=== PATIENT | male | born 1970 | race Caucasian/White ===

== ENCOUNTER 2018-09-11 15:30 | Emergency (ER) | payer BC ==
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
== END 2018-09-11 18:02 | disposition home or self-care (01) ==
LOC: ER 15:30
DX: B08.5 Enteroviral vesicular pharyngitis (principal); I10 Essential (primary) hypertension; Z88.5 Allergy status to narcotic agent
CPT/HCPCS: 87070; 87081; 99283

== ENCOUNTER 2020-09-01 21:08 | Emergency (ER) | payer BC, SELFPAY ==
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
[2020-09-02 00:08] LABS: Hematocrit 35.1 % (39.6-49.0); MPV 7.4 fL (7.6-11.3); RBC Red Blood Cell Count 4.05 M/uL (4.33-5.43)
[2020-09-02 00:17] LABS: Protime INR 1.03
[2020-09-02] MEDS ORDERED: NA CHLORIDE 0.9% 1,000 ML ONE (00:31)
[2020-09-02 00:56] LABS: ALT/SGPT 102 U/L (12-78); AST/SGOT 86 U/L (15-37); Albumin 3.8 g/dL (3.4-5.0); Alkaline Phosphatase 79 U/L (45-117); BUN Blood Urea Nitrogen 13 mg/dL (7-18); Bicarbonate 28 mmol/L (21-32); Bilirubin Direct 0.2 mg/dL (0-0.2); Bilirubin Total 0.4 mg/dL (0.2-1.0); Glucose Level 95 mg/dL (74-106); Lipase 521 U/L (73-393); Magnesium 2.1 mg/dL (1.8-2.4); NT PRO-BNP 22 pg/mL (<125); Potassium 3.6 mmol/L (3.5-5.1); Protein, Total 7.5 g/dL (6.4-8.2); Sodium Level 140 mmol/L (136-145); Troponin (Emerg Dept Use Only) < 0.02 ng/mL (0.0-0.045)
--- NOTE | 2020-09-02 01:10 | ER ---
Nurse's Notes [facility] Name: Mayco Bedolla Age: 49 yrs Sex: Male : 1970 Arrival Date: 09/01/2020 Time: 21:10 Bed 13 Private MD: Jorge Carrillo H Diagnosis: Fever, unspecified-NO DIAGNOSIS - DISCHARGED FROM [facility] DUE TO DOWNTIME Presentation: 09/01 21:46 Chief complaint: Patient states: palpitations, left lower quad pain and epigastric pain em for about 5 days, denies N/V and subjective fever. Coronavirus screen: Client denies travel out of the [place] in the last 14 days. Ebola Screen: Patient negative for fever greater than or equal to 101.5 degrees Fahrenheit, and additional compatible Ebola Virus Disease symptoms Patient denies exposure to infectious person. Patient denies travel to an Ebola-affected area in the 21 days before illness onset. No symptoms or risks identified at this time. Initial Sepsis Screen: Does the patient meet any 2 criteria? No. Patient's initial sepsis screen is negative. Does the patient have a suspected source of infection? No. Patient's initial sepsis screen is negative. Risk Assessment: Do you want to hurt yourself or someone else? Patient reports no desire to harm self or others. Onset of symptoms was September 01, 2020. 21:46 Method Of Arrival: Ambulatory em 21:46 Acuity: HUGH 3 em Historical: - Allergies: 21:48 Codeine; em - PMHx: 21:48 Hypertension; em - PSHx: 21:48 None; em - Immunization history:: Adult Immunizations up to date. - Social history:: Smoking status: Patient denies any tobacco usage or history of. Screenin:53 Abuse screen: Denies threats or abuse. Nutritional screening: No deficits noted. bb Tuberculosis screening: No symptoms or risk factors identified. Fall Risk None identified. Assessment: 22:45 General: Appears in no apparent distress. Behavior is calm, cooperative. Pain: bb Complains of pain in abdomen. Neuro: Level of Consciousness is awake, alert, obeys commands, Oriented to person, place, time, situation. Cardiovascular: Heart tones S1 S2 present Capillary refill < 3 seconds Patient's skin is warm and dry. Pulses are all present. Edema is absent. Respiratory: Airway is patent Respiratory effort is even, unlabored, Respiratory pattern is regular, Breath sounds are clear bilaterally. GI: Abdomen is non-distended, Bowel sounds present X 4 quads. Abd is soft and non tender X 4 quads. : No signs and/or symptoms were reported regarding the genitourinary system. Derm: Skin is pink, warm \T\ dry. Musculoskeletal: Circulation, motion, and sensation intact. 09/02 00:22 Reassessment: Patient is alert, oriented x 3, equal unlabored respirations, skin bb warm/dry/pink. IV site intact, patent with fluids infusing family at bedside. Vital Signs: 09/01 21:46 BP 159 / 93; Pulse 88; Resp 18; Temp 97.5; Pulse Ox 99% on R/A; Weight 81.65 kg; Height em 6 ft. 0 in. (182.88 cm); Pain 8/10; 22:52 BP 126 / 74; Pulse 82; Resp 16 S; Pulse Ox 96% on R/A; bb 09/02 00:22 BP 116 / 79; Pulse 78; Resp 14 S; Pulse Ox 95% on R/A; bb 09/01 21:46 Body Mass Index 24.41 (81.65 kg, 182.88 cm) em ED Course: 09/01 21:10 Patient arrived in ED. es 21:11 Jorge Carrillo DO is Private Physician. es 21:48 Triage completed. em 21:48 Arm band placed on. em 22:45 Cecy Prasad, RN is Primary Nurse. bb 22:53 Patient has correct armband on for positive identification. Placed in gown. Bed in low bb position. Call light in reach. Adult w/ patient. Pulse ox on. NIBP on. 23:22 Inserted saline lock: 18 gauge in right forearm, using aseptic technique. Blood bb collected. 23:29 Sandip Francis NP is PHCP. pm1 23:29 Adelfo Feliz MD is Attending Physician. pm1 23:30 Initial lab(s) drawn, by me, sent to lab. bb 09/02 00:10 XRAY Chest (1 view) In Process Unspecified. EDMS 00:22 EKG done, by ED staff, reviewed by Adelfo Feliz MD. bb Administered Medications: 00:21 Drug: NS 0.9% 1000 ml Route: IV; Rate: 1000 ml; Site: right forearm; bb Outcome: 01:09 Discharge ordered by sr5 01:09 Discharged to DISCHARGED OUT OF [facility] DUE TO DOWNTIME. CARE CONTINUED IN [facility] sr5 01:10 Patient left the ED. sr5 Signatures: Dispatcher [facility] EDMayra Wheeler Edgar, RN RN em Ballard, Brenda, RN RN bb Marinas, Patrick, DIETETICS DIRECTOR DIETETICS DIRECTOR pm1 Luis Enrique Brooks RN RN sr5
[2020-09-02 01:11] LABS: Blood Morphology Comment NOT SEEN (NOT SEEN); Platelet Estimate ADEQ
[2020-09-02 02:13] LABS: Urine Blood Negative (Negative); Urine Glucose Trace (Negative); Urine Protein Negative (Negative); Urine Specific Gravity 1.015 (1.005-1.030)
[2020-09-02 02:35] VITALS: TEMP 97.5
[2020-09-02 02:39] VITALS: BP 116/79; O2SAT 95
[2020-09-02 03:20] LABS: Barbiturates NEGATIVE (NEGATIVE); Benzodiazepines NEGATIVE (NEGATIVE); Cocaine NEGATIVE (NEGATIVE); METHAMPHETAM NEGATIVE (NEGATIVE); Methadone NEGATIVE (NEGATIVE); Opiates NEGATIVE (NEGATIVE); Phencyclidine NEGATIVE (NEGATIVE); THC Cannibis POSITIVE (NEGATIVE)
--- NOTE | 2020-09-02 07:03 | RAD REPORT ---
EXAM DESCRIPTION: RAD - Chest Single View - 09/02/2020 12:09 am CLINICAL HISTORY: PALPITATIONS COMPARISON: September 2009 acute abdomen series TECHNIQUE: AP portable chest image was obtained 09/02/2020 12:09 am . FINDINGS: Lungs are clear. Heart and vasculature are normal. No measurable pleural effusion and no p neumothorax. No acute bony abnormality seen. No acute aortic findings suspected. IMPRESSION: No acute cardiopulmonary process. No significant change from comparison study.
--- NOTE | 2020-09-02 12:18 | EDPHYS ---
Physician Documentation [facility] Name: Mayco Bedolla Age: 49 yrs Sex: Male : 1970 Arrival Date: 09/01/2020 Time: 21:10 Bed 13 Private MD: Jorge Carrillo H ED Physician Adelfo Feliz Historical: - Allergies: 09/01 21:48 Codeine; em - PMHx: 21:48 Hypertension; em - PSHx: 21:48 None; em - Immunization history:: Adult Immunizations up to date. - Social history:: Smoking status: Patient denies any tobacco usage or history of. Vital Signs: 21:46 BP 159 / 93; Pulse 88; Resp 18; Temp 97.5; Pulse Ox 99% on R/A; Weight 81.65 kg; Height em 6 ft. 0 in. (182.88 cm); Pain 8/10; 22:52 BP 126 / 74; Pulse 82; Resp 16 S; Pulse Ox 96% on R/A; bb 09/02 00:22 BP 116 / 79; Pulse 78; Resp 14 S; Pulse Ox 95% on R/A; bb 09/01 21:46 Body Mass Index 24.41 (81.65 kg, 182.88 cm) em MDM: 09/01 23:32 Patient medically screened. pm09/01 23:22 Order name: Basic Metabolic Panel; Complete Time: 01:07 09/01 23:22 Order name: CBC with Diff 09/01 23:22 Order name: Hepatic Function; Complete Time: 01:07 09/01 23:22 Order name: Lipase; Complete Time: 01:07 09/01 23:53 Order name: Magnesium pm09/01 23:53 Order name: NT PRO-BNP pm09/01 23:53 Order name: PT-INR; Complete Time: 01:07 pm09/01 23:53 Order name: Troponin (emerg Dept Use Only) pm09/02 00:08 Order name: Troponin (Emerg Dept Use Only); Complete Time: 01:07 EDIL 09/02 00:08 Order name: NT PRO-BNP; Complete Time: 01:07 EDIL 09/02 00:08 Order name: Magnesium; Complete Time: 01:07 EDIL 09/01 23:22 Order name: IV Saline Lock; Complete Time: 23:22 09/01 23:22 Order name: Labs collected and sent; Complete Time: 23:22 09/01 23:53 Order name: XRAY Chest (1 view) pm09/01 23:53 Order name: EKG; Complete Time: 23:53 pm1 09/01 23:53 Order name: Cardiac monitoring; Complete Time: 00:21 pm09/01 23:53 Order name: EKG - Nurse/Tech; Complete Time: 00:21 pm09/01 23:53 Order name: O2 Per Protocol; Complete Time: 00:21 pm09/01 23:53 Order name: O2 Sat Monitoring; Complete Time: 00:21 pm09/01 23:53 Order name: CT Abd/Pelvis - IV Contrast Only pm09/02 00:12 Order name: Manual Differential EDMS Administered Medications: 09/02 00:21 Drug: NS 0.9% 1000 ml Route: IV; Rate: 1000 ml; Site: right forearm; bb Disposition: 09/02/20 01:09 Discharged to Home. Impression: Fever, unspecified - NO DIAGNOSIS - DISCHARGED FROM [facility] DUE TO DOWNTIME. - Condition is Undetermined. - Medication Reconciliation Form, Thank You Letter, Antibiotic Education, Prescription Opioid Use form. Addendum: 12:12 Addendum: HPI: This 49 yrs old Male presents to the ED with complaints of p m1 abdominal pain and palpitations. Onset: The symptoms started 5 days ago. Pertinent positives: Palpitations. Pertinent negatives: n/v/d, fever, sob, chest pain. The symptoms are described as changing locations along back and abdomen. Achy, crampy. Modifying factors: The symptoms are alleviated by nothing. aggravated by nothing. Severity of pain: in the emergency department the pain is improved. The patient has experienced similar episodes in the past, about 1 year ago. dx pancreatitis. Patient has not recently seen a physician . 12:18 Addendum: ROS: Constitutional: Negative for fever, chills, and weight loss. p m1 Cardiovascular: Negative for chest pain, edema. Positive for palpitations. Respiratory: Negative for shortness of breath, cough, wheezing. Back: Negative for injury. Positive for flank pain. : Negative for injury, bleeding, discharge, and swelling. MS/Extremity: Negative for injury and deformity. Skin: Negative for rash and discoloration. Neuro: Negative for headache, weakness, dizziness. Abdomen: Positive for abdominal pain. Negative for n/v/d. 12:21 Addendum: Exam: Constitutional: This is a well developed, well nourished patient who is p m1 awake, alert, and in no acute distress. Head/Face: Normocephalic, atraumatic. Eyes: Exam is negative for acute changes. EOMI. ENT: Mouth lips : normal, Oral mucosa: pink and intact, moist. Cardiovascular: rate normal, regular rhythm, no pulse deficits. Respiratory: No distress, no shortness of breath. breath sounds clear to auscultation. Back: No spinal tenderness. no costovertebral tenderness. FROM. Skin: Warm, dry with normal turgor. normal color with no rashes, no lesion, no cellulitis. MS/ extremity: Pulses equal, no cyanosis. Neurovascular intact. FROM. Abdomen: inspection: appears normal. palpation: soft in all quadrants without tenderness. Neuro:n negative for acute changes. Orientation is normal. mentation is normal. Motor: moves all four . 12:27 Addendum: MDM: Patient's pain refused pain medications offered after examination p m1 because his pain was resolved at the time without any tenderness on palpation. Care handed off to Dr. Feliz and disposition continued on paper charting. 09/06/2020 19:05 Co-signature as Attending Physician, Adelfo Feliz MD. p kl Signatures: Dispatcher [facility] Adelfo Feliz MD MD pkl Munoz, Edgar, RN Cecy Bryson RN RN bb Marinas, Patrick, NP [employer] OPERATOR pm1 Luis Enrique Brooks RN RN sr5 Corrections: (The following items were deleted from the chart) 09/02 00:08 09/01 23:53 Magnesium ordered. [facility] 09/02 00:08 09/01 23:53 NT PRO-BNP ordered. [facility] 09/02 00:08 09/01 23:53 Troponin (Emerg Dept Use Only) ordered. [facility] 09/02 01:10 01:09 09/02/2020 01:09 Discharged to Home. Impression: Fever, unspecified - NO sr5 DIAGNOSIS - DISCHARGED FROM [facility] DUE TO DOWNTIME. Condition is Undetermined. Forms are Medication Reconciliation Form, Thank You Letter, Antibiotic Education, Prescription Opioid Use. sr5
--- NOTE | 2020-09-02 12:55 | EKG ---
Test Date: 2020-09-02 Test Time: 00:15:36 [employer]: [employer] MEASUREMENT RESULTS: Intervals: Rate: 78 SD: 178 QRSD: 106 QT: 386 QTc: 440 [place]: P: 43 SD: 178 QRS: 86 T: 39 INTERPRETIVE STATEMENTS: Normal sinus rhythm Low voltage QRS Borderline ECG Compared to ECG 07/14/2016 09:02:15 Low QRS voltage now present Electronically Signed On 09-02-20 12:53:45 CDT by Truman Davidson
--- NOTE | 2020-09-02 14:56 | RAD REPORT ---
EXAM DESCRIPTION: CT - Abdomen Pelvis W Contrast - 09/02/2020 6:48 am CLINICAL HISTORY: The patient is 49 years old and is Male; ABD PAIN TECHNIQUE: Axial computed tomography images of the abdomen and pelvis with intravenous contrast. S agittal and coronal reformatted images were created and reviewed. This CT exam was performed using one or more of the following dose reduction techniques: automated exposure control, adjustment of t he mA and/or kV according to patient size, and/or use of iterative reconstruction technique. COMPARISON: No relevant prior studies available. FINDINGS: Lung bases: Unremarkable. No mass. No consolidation. ABDOMEN: Liver: Unremarkable. No mass. Gallbladder and bile ducts: Gallbladder is contracted. No calcified stones. No ductal dilation. Pancreas: Unremarkable. No mass. No ductal dilation. Spleen: Unremarkable. No splenomegaly. Adrenals: Unremarkable. No mass. Kidneys and ureters: Unremarkable. No solid mass. No hydronephrosis. Stomach and bowel: Scattered colonic diverticula. No obstruction. No mucosal thickening. PELVIS: Appendix: No findings to suggest acute appendicitis. Bladder: Unremarkable. No mass. Reproductive: Unremarkable as visualized. ABDOMEN and PELVIS: Intraperitoneal space: Unremarkable. No free air. No significant fluid collection. Bones/joints: No acute fracture. No dislocation. Soft tissues: Unremarkable. Vasculature: Unremarkable. No abdominal aortic aneurysm. Lymph nodes: Unremarkable. No enlarged lymph nodes. IMPRESSION: No acute findings in the abdomen or pelvis. Electronically signed by: Leon Ocampo MD 09/02/2020 1:55 AM CDT Due to temporary technical issues with the PACS/Fluency reporting system, reports are being signed by the in house radiologists without review as a courtesy to insure prompt reporting. The interpreting radiologist is fully responsible for the content of the report.
== END 2020-09-02 01:10 | disposition home or self-care (01) ==
LOC: ER 21:08
DX: K85.90 Acute pancreatitis without necrosis or infection, unspecified (principal); R00.2 Palpitations
CPT/HCPCS: 36415; 71045; 74177; 80048; 80076; 80307; 80320; 81003; 83690; 83735; 83880; 84484; 85025; 85610; 93005; 99284; J7030; Q9967

== ENCOUNTER → 2023-05-18 | Emergency (ER) | payer SELFPAY ==
[~2023-05-18] MED LIST: FAMOTIDINE 20 MG/2 ML VIAL IV ONE; MORPHINE 4 MG/ML SYR ONE; NA CHLORIDE 0.9% 1,000 ML ONE; ONDANSETRON 4 MG/2 ML VIAL ONE
[2023-05-18 13:40] LABS: Absolute Lymphocytes (CBC) 1.6 K/uL (0.7-4.9); Absolute Monocytes 0.6 K/uL (0.1-1.3); Absolute Neutrophil 9.7 K/uL (1.8-8.0); Basophils % 0.3 % (0-1.3); Eosinophils % 0.2 % (0-4.4); Hematocrit 42.9 % (39.6-49.0); Hemoglobin 14.3 g/dL (13.6-17.9); Lymphocytes % 13.4 % (15.3-44.8); MCH 27.8 pg (27.0-35.0); MCHC 33.4 g/dL (32.0-36.0); MCV 83.1 fL (80-100); MPV 7.5 fL (7.6-11.3); Monocytes % 5.1 % (3.3-12.3); Platelets 269 thou/uL (152-406); RBC Red Blood Cell Count 5.16 M/uL (4.33-5.43); Red Cell Distribution Width 13.7 % (12.1-15.2)
[2023-05-18 14:11] LABS: Albumin 4.1 g/dL (3.4-5.0); Albumin/Globulin Ratio 0.9 (1.1-1.8); Anion Gap 10.1 mEq/L (5.0-15.0); Bilirubin Total 1.1 mg/dL (0.2-1.0); Globulin 4.5 g/dL (2.3-3.5); Potassium 4.1 mEq/L (3.5-5.1); Protein, Total 8.6 g/dL (6.4-8.2)
[2023-05-18 15:44] LABS: Specific Gravity > 1.030 (1.005-1.030); Urine Bacteria <20 /HPF (<20); Urine Bilirubin NEGATIVE (Negative); Urine Blood Negative (Negative); Urine Clarity Clear (Clear); Urine Color Light-Yellow (Yellow); Urine Glucose NEGATIVE (Negative); Urine Mucus Slight /HPF (None Seen); Urine Protein TRACE (Negative); Urine RBC <5 /HPF (None Seen); Urine Urobilinogen Normal (Normal)
--- NOTE | 2023-05-18 15:47 | RAD REPORT ---
EXAM DESCRIPTION: CT - Abdomen Pelvis W Contrast - 05/18/2023 2:28 pm CLINICAL HISTORY: ABD PAIN COMPARISON: Abdomen Pelvis W Contrast dated 09/02/2020 TECHNIQUE: Thin cut axial CT imaging of the abdomen and pelvis was performed following intravenous a dministration of iodinated contrast. Multiplanar reformats were generated and reviewed. All CT scans are performed using dose optimization technique as appropriate and may include automated exposure control or mA/KV adjustment according to patient size. FINDINGS: No suspicious findings in the lung bases. The liver, spleen, adrenal glands, and pancreas show no suspicious findings. Gallbladder is distended , with numerous layering calculi. Two small radiodense foci in the pancreatic head posteriorly, which are along the course of the CBD, up to 4 mm in size. Mildly prominent proximal common bile duct corrie uring up to 8 mm in caliber. Symmetric renal function is seen with no hydronephrosis or suspicious renal mass. No dilated bowel loops or bowel wall thickening. Appendix is unremarkable. No free air, free fluid or inflammatory stranding. No hernia, mass or bulky lymphadenopathy. The urinary bladder is without sig nificant finding. No suspicious bony findings. IMPRESSION: Distended gallbladder with small layering gallstones. Please correlate clinically for ev idence of acute cholecystitis. Small foci in the pancreatic head as above, unclear whether it may relate to pancreatic calcification s versus common bile duct stones. Common bile duct Ms. mildly prominent, measures 8 mm in caliber. Correlation with upper abdominal ultrasound would be helpful to evaluate for acute cholecystitis and choledocholithiasis.
--- NOTE | 2023-05-18 17:10 | RAD REPORT ---
EXAM DESCRIPTION: US - Abdomen Exam Limited - 05/18/2023 4:21 pm CLINICAL HISTORY: ruq COMPARISON: Abdomen Pelvis W Contrast dated 05/18/2023 TECHNIQUE: Sonographic grayscale and color flow images of the right upper abdominal quadrant were o btained. FINDINGS: The gallbladder demonstrates small layering shadowing gallstones. No pericholecystic fluid or gallbladder wall thickening. Sonographic Osorio sign was negative. The common bile duct is normal measuring 5 mm. The liver demonstrates no findings of intrahepatic biliary dilatation. IMPRESSION: Cholelithiasis without sonographic evidence of acute cholecystitis. Normal common bile duct caliber.
--- NOTE | 2023-05-18 17:17 | EDPHYS ---
Physician Documentation [facility] Name: Mayco Bedolla Age: 52 yrs Sex: Male : 1970 Arrival Date: 05/18/2023 Time: 11:24 Bed DX3 Private MD: Jorge Carrillo H ED Physician Azeem Stone HPI: 05/17 15:18 This 52 yrs old Male presents to ER via Ambulatory with complaints of Abdominal Pain. rt 15:18 Patient presents to the ED with epigastric pain starting at about 10 AM. Reports rt nausea, vomiting. States that the symptoms are similar to recent pancreatitis in the past. Denies other acute complaints, symptoms are moderate severity, aching nature, nonradiating, no other aggravating alleviating factors.. Historical: - Allergies: 11:28 Codeine; ll1 - PMHx: 11:28 Hypertension; ll1 11:39 "liver messed up"; ll1 11:40 Pancreatitis; ll1 - Immunization history:: Adult Immunizations up to date. - Social history:: Smoking status: Patient denies any tobacco usage or history of. - Family history:: not pertinent. ROS: 15:18 Constitutional: Negative for fever, chills, and weight loss, Cardiovascular: Negative rt for chest pain, palpitations, and edema, Respiratory: Negative for shortness of breath, cough, wheezing, and pleuritic chest pain, MS/Extremity: Negative for injury and deformity, Skin: Negative for injury, rash, and discoloration, Neuro: Negative for headache, weakness, numbness, tingling, and seizure, Psych: Negative for depression, anxiety, suicide ideation, homicidal ideation, and hallucinations, 15:18 Abdomen/GI: Positive for abdominal pain, nausea, Exam: 15:18 Constitutional: This is a well developed, well nourished patient who is awake, alert, rt and in no acute distress. Head/Face: Normocephalic, atraumatic. Chest/axilla: Normal chest wall appearance and motion. Nontender with no deformity. No lesions are appreciated. Cardiovascular: Regular rate and rhythm with a normal S1 and S2. No gallops, murmurs, or rubs. Normal PMI, no JVD. No pulse deficits. Respiratory: Lungs have equal breath sounds bilaterally, clear to auscultation and percussion. No rales, rhonchi or wheezes noted. No increased work of breathing, no retractions or nasal flaring. Skin: Warm, dry with normal turgor. Normal color with no rashes, no lesions, and no evidence of cellulitis. MS/ Extremity: Pulses equal, no cyanosis. Neurovascular intact. Full, normal range of motion. Neuro: Awake and alert, GCS 15, oriented to person, place, time, and situation. Cranial nerves II-XII grossly intact. Motor strength 5/5 in all extremities. Sensory grossly intact. Cerebellar exam normal. Normal gait. Psych: Awake, alert, with orientation to person, place and time. Behavior, mood, and affect are within normal limits. 15:18 Abdomen/GI: Tenderness to the epigastrium without rebound, guarding, distention, Vital Signs: 11:38 BP 144 / 97; Pulse 71; Resp 18; Temp 97.1; Pulse Ox 98% ; Weight 113.4 kg; Height 6 ft. ll1 1 in. ; Pain 8/10; 13:38 BP 134 / 93; Pulse 68; Resp 17; Temp 97.8; Pulse Ox 98% ; Pain 7/10; ap3 16:45 BP 125 / 86; Pulse 75; Resp 17; Pulse Ox 97% ; ap3 11:38 Body Mass Index 32.98 (113.40 kg, 185.42 cm) ll1 11:38 Pain Scale: Adult ll1 13:38 Pain Scale: Adult ap3 MDM: 11:43 Patient medically screened. rt 17:18 Differential diagnosis: Cholelithiasis, cholecystitis, pancreatitis. Data reviewed: rt vital signs, nurses notes. Consideration of Admission/Observation Escalation of care including admission/observation considered. Patient clinically does not have cholecystitis nor is there ultrasonographic evidence of cholecystitis, stable for outpatient care.. I considered the following discharge prescriptions or medication management in the emergency department Medications were administered in the Emergency Department. See MAR. Independent interpretation of the following test(s) in the Emergency Department CT Scan: My interpretation is No bowel obstruction syndrome interpretation of CT scan images. Care significantly affected by the following chronic conditions: Hypertension. Counseling: I had a detailed discussion with the patient and/or guardian regarding the historical points, exam findings, and any diagnostic results supporting the discharge/admit diagnosis, lab results, radiology results, the need for outpatient follow up, to return to the emergency department if symptoms worsen or persist or if there are any questions or concerns that arise at home. Response to treatment: the patient's symptoms have markedly improved after treatment. 05/17 11:43 Order name: CBC with Diff; Complete Time: 14:30 rt 05/17 11:43 Order name: CMP; Complete Time: 14:30 rt 05/17 11:43 Order name: Lipase; Complete Time: 14:30 rt 05/17 11:43 Order name: Urinalysis w/ reflexes; Complete Time: 15:45 rt 05/17 11:43 Order name: CT Abd/Pelvis - IV Contrast Only; Complete Time: 15:50 rt 05/17 15:57 Order name: US Abdomen Limited; Complete Time: 17:14 rt 05/17 11:43 Order name: IV Saline Lock; Complete Time: 13:24 rt 05/17 11:43 Order name: Labs collected and sent; Complete Time: 13:24 rt Administered Medications: 13:37 Drug: NS 0.9% IV 1000 ml IV at 1 bolus Per protocol; 1000 mL bolus Route: IV; Rate: 1 ap3 bolus; Site: right antecubital; 17:35 Follow up: IV Status: Completed infusion; IV Intake: 1000ml ap3 13:37 Drug: Ondansetron IVP 4 mg IVP once; over 2 minutes Route: IVP; Site: right antecubital;ap3 17:35 Follow up: Response: No adverse reaction; Pain is decreased ap3 13:37 Drug: morphine IVP or IV 4 mg IVP once over 4 mins Route: IVP; Infused Over: 4 mins; ap3 Site: right antecubital; 17:36 Follow up: Response: No adverse reaction; Pain is decreased ap3 13:38 Drug: Famotidine IVP 20 mg IVP once; dilute with 10 mL 0.9% NaCl; give over 2 minutes ap3 Route: IVP; Site: right antecubital; 17:35 Follow up: Response: No adverse reaction ap3 Disposition Summary: 05/18/23 17:17 Discharge Ordered Notes: Location: Home rt Problem: new rt Symptoms: have improved rt Condition: Stable rt Diagnosis - Calculus of gallbladder without cholecystitis rt Followup: rt - With: Daniel Feldman MD - When: 5 - 6 days - Reason: Discharge Instructions: - Discharge Summary Sheet ll1 - Cholelithiasis rt Forms: - Work release form ll1 - Medication Reconciliation Form rt - Thank You Letter rt - Antibiotic Education rt - Prescription Opioid Use rt - Patient Portal Instructions rt - Leadership Thank You Letter rt Prescriptions: - Tramadol 50 mg Oral Tablet - take 1 tablet ORAL route every 8 hours as needed; 12 tablet; Refills: 0, rt Product Selection Permitted Signatures: Dispatcher [employer] Eleni Lindsay RN RN ap3 Vu Meeks RN RN ll1 Azeem Stone MD MD rt
--- NOTE | 2023-05-18 17:17 | ER ---
Nurse's Notes [facility] Name: Mayco Bedolla Age: 52 yrs Sex: Male : 1970 Arrival Date: 05/18/2023 Time: 11:24 Bed DX3 Private MD: Jorge Carrillo H Diagnosis: Calculus of gallbladder without cholecystitis Presentation: 05/17 11:38 Chief complaint: Patient states: Epigastric pain started 2 hours [employer] with nausea. ll1 Coronavirus screen: Client denies travel out of the [place] in the last 14 days. At this time, the client does not indicate any symptoms associated with coronavirus-19. Ebola Screen: Patient denies travel to an Ebola-affected area in the 21 days before illness onset. Initial Sepsis Screen: Does the patient meet any 2 criteria? No. Patient's initial sepsis screen is negative. Does the patient have a suspected source of infection? No. Patient's initial sepsis screen is negative. Risk Assessment: Do you want to hurt yourself or someone else? Patient reports no desire to harm self or others. Onset of symptoms was May 18, 2023. 11:38 Method Of Arrival: Ambulatory ll1 11:38 Acuity: HUGH 3 ll1 Triage Assessment: 11:40 General: Appears uncomfortable, Behavior is calm, cooperative, appropriate for age. ll1 Pain: Complains of pain in upper abdomen Pain currently is 8 out of 10 on a pain scale. Quality of pain is described as aching. GI: Abdomen is round Reports upper abdominal pain, nausea. Historical: - Allergies: 11:28 Codeine; ll1 - PMHx: 11:28 Hypertension; ll1 11:39 "liver messed up"; ll1 11:40 Pancreatitis; ll1 - Immunization history:: Adult Immunizations up to date. - Social history:: Smoking status: Patient denies any tobacco usage or history of. - Family history:: not pertinent. Screenin:39 [facility] ED Fall Risk Assessment (Adult) History of falling in the last 3 months, ap3 including since admission No falls in past 3 months (0 pts) Confusion or Disorientation No (0 pts) Intoxicated or Sedated No (0 pts) Impaired Gait No (0 pts) Mobility Assist Device Used No (0 pt) Altered Elimination No (0 pt) Score/Fall Risk Level 0 - 2 = Low Risk Oriented to surroundings, Maintained a safe environment, Educated pt \\T\\ family on fall prevention, incl call for assistance when getting out of bed, Assessed \\T\\ reinforced patient's understanding of fall precautions, Provided non-skid footwear, Hourly rounding (assess needs \\T\\ fall precautionary measures) done, Used ambulatory aids as needed (educated on \\T\\ assisted with). Abuse screen: Denies threats or abuse. Nutritional screening: No deficits noted. Tuberculosis screening: No symptoms or risk factors identified. Assessment: 11:41 Reassessment: Dr. Stone in triage for evaluation. ll1 13:38 General: Appears in no apparent distress. Behavior is calm, cooperative, appropriate ap3 for age. Pain: Complains of pain in abdomen. Neuro: Level of Consciousness is awake, alert, obeys commands, Oriented to person, place, time, situation. Cardiovascular: Patient's skin is warm and dry. Respiratory: Airway is patent Respiratory effort is even, unlabored, Respiratory pattern is regular, symmetrical. GI: Reports upper abdominal pain, nausea. 14:12 Reassessment: Patient and/or family updated on plan of care and expected duration. Pain ap3 level reassessed. Patient is alert, oriented x 3, equal unlabored respirations, skin warm/dry/pink. 16:46 Reassessment: Patient and/or family updated on plan of care and expected duration. Pain ap3 level reassessed. Patient is alert, oriented x 3, equal unlabored respirations, skin warm/dry/pink. 17:36 GI: Bowel sounds present X 4 quads. Abd is soft. ap3 Vital Signs: 11:38 BP 144 / 97; Pulse 71; Resp 18; Temp 97.1; Pulse Ox 98% ; Weight 113.4 kg; Height 6 ft. ll1 1 in. ; Pain 8/10; 13:38 BP 134 / 93; Pulse 68; Resp 17; Temp 97.8; Pulse Ox 98% ; Pain 7/10; ap3 16:45 BP 125 / 86; Pulse 75; Resp 17; Pulse Ox 97% ; ap3 11:38 Body Mass Index 32.98 (113.40 kg, 185.42 cm) ll1 11:38 Pain Scale: Adult ll1 13:38 Pain Scale: Adult ap3 ED Course: 11:26 Patient arrived in ED. mr 11:26 Jorge Carrillo DO is Private Physician. mr 11:28 Arm band placed on. ll1 11:35 Azeem Stone MD is Attending Physician. rt 11:39 Triage completed. ll1 13:24 Initial lab(s) drawn, by me, sent to lab. Inserted saline lock: 20 gauge in right ap3 antecubital area, using aseptic technique. Blood collected. 13:37 Eleni Byrne, COLLIN is Primary Nurse. ap3 13:39 Patient has correct armband on for positive identification. patient in chair, connected ap3 to vitals machine. 13:39 Pulse ox on. NIBP on. ap3 13:39 No provider procedures requiring assistance completed. ap3 14:29 CT Abd/Pelvis - IV Contrast Only In Process Unspecified. EDMS 16:23 US Abdomen Limited In Process Unspecified. EDMS 17:16 Daniel Feldman MD is Referral Physician. rt 17:35 IV discontinued, intact, bleeding controlled, No redness/swelling at site. ap3 17:36 Provided Education on: discharge instructions. ap3 Administered Medications: 13:37 Drug: NS 0.9% IV 1000 ml IV at 1 bolus Per protocol; 1000 mL bolus Route: IV; Rate: 1 ap3 bolus; Site: right antecubital; 17:35 Follow up: IV Status: Completed infusion; IV Intake: 1000ml ap3 13:37 Drug: Ondansetron IVP 4 mg IVP once; over 2 minutes Route: IVP; Site: right antecubital;ap3 17:35 Follow up: Response: No adverse reaction; Pain is decreased ap3 13:37 Drug: morphine IVP or IV 4 mg IVP once over 4 mins Route: IVP; Infused Over: 4 mins; ap3 Site: right antecubital; 17:36 Follow up: Response: No adverse reaction; Pain is decreased ap3 13:38 Drug: Famotidine IVP 20 mg IVP once; dilute with 10 mL 0.9% NaCl; give over 2 minutes ap3 Route: IVP; Site: right antecubital; 17:35 Follow up: Response: No adverse reaction ap3 Medication: 17:36 VIS not applicable for this client. ap3 Intake: 17:35 IV: 1000ml; Total: 1000ml. ap3 Outcome: 17:17 Discharge ordered by . rt 17:35 Discharged to home ambulatory, ap3 17:35 Condition: good 17:35 Discharge instructions given to patient, Instructed on discharge instructions, follow up and referral plans. medication usage, Demonstrated understanding of instructions, follow-up care, medications, Prescriptions given X 1, 17:36 Patient left the ED. ap3 Signatures: Dispatcher [employer] EDPA Estelle Chauhan, Reg Reg mr Eleni Byrne RN RN ap3 Vu Meeks RN RN ll1 Azeem Stone MD MD rt Corrections: (The following items were deleted from the chart) 11:42 11:38 BP 151 / 101; Pulse 71bpm; Resp 18bpm; Pulse Ox 98%; Temp 97.1F; 113.4 kg; Height ll1 6 ft. 1 in.; BMI: 32.9; Pain 8/10, Adult; ll1
[2023-05-18 18:05] VITALS: BP 125/86; TEMP 97.8; O2SAT 97
== END ==
LOC: ER 11:24
DX: K80.20 Calculus of gallbladder without cholecystitis without obstruction (principal); Z88.5 Allergy status to narcotic agent
CPT/HCPCS: 36415; 74177; 76705; 80053; 81001; 83690; 85025; J2405; J7030; Q9967